=== PATIENT | male | born 1970 | race Two or more races ===

== ENCOUNTER 2022-03-25 17:50 | Inpatient (IN) | payer MEDICAID ==
[~2022-03-25] VITALS: Ht 175.3 cm; Wt 108.2 kg
[2022-03-25 19:07] LABS: BASOPHILS % (AUTO) 0.4 % (0-1); EOSINOPHILS % (AUTO) 0.1 % (0-6); HEMATOCRIT 41.9 % (42.0-52.0); HEMOGLOBIN 14.9 g/dl (14.0-17.9); LYMPHOCYTES # (AUTO) 0.9 X10'3 (1.1-4.8); LYMPHOCYTES % (AUTO) 9.6 % (21-51); MEAN CORPUSCULAR HGB CONC 35.5 g/dL (33.0-36.5); MEAN CORPUSCULAR VOLUME 98.4 FL (78-98); MEAN PLATELET VOLUME 8.8 FL (7.4-10.4); MONOCYTES # (AUTO) 0.8 X10'3 (0-0.9); MONOCYTES % (AUTO) 8.6 % (2-12); NEUTROPHILS # (AUTO) 7.5 X10'3 (1.8-7.7); NEUTROPHILS % (AUTO) 81.3 % (42-75); PLATELET COUNT 153 X10'3 (140-440); RED BLOOD COUNT 4.26 X10'6 (4.70-6.10); RED CELL DISTRIBUTION WIDTH 13.1 % (11.5-14.5); WHITE BLOOD COUNT 9.2 X10'3 (4.5-11.0)
[2022-03-25 19:22] LABS: ALANINE AMINOTRANSFERASE 60 U/L (12-78); ALBUMIN 3.4 G/DL (3.4-5.0); ALKALINE PHOSPHATASE 200 IU/L (46-116); AMYLASE 120 U/L (25-115); ANION GAP 9 (8-16); ASPARTATE AMINO TRANSFERASE 105 U/L (10-37); BILIRUBIN,TOTAL 7.3 MG/DL (0.1-1.0); BLOOD UREA NITROGEN 4 MG/DL (7-18); BUN/CREATININE RATIO 6.2 (5.4-32.0); CALCIUM 9.4 MG/DL (8.5-10.1); CHLORIDE 98 MMOL/L (99-107); CREATININE 0.65 MG/DL (0.60-1.10); GLUCOSE 112 MG/DL (70-104); LIPASE 537 U/L (73-393); POTASSIUM 4.1 MMOL/L (3.5-5.1); SODIUM 131 MMOL/L (135-145); TOTAL CARBON DIOXIDE 24.1 MMOL/L (24-32); eGFR > 90 ML/MIN
[2022-03-25 19:36] LABS: ALBUMIN/GLOBULIN RATIO 0.7 (1.1-1.5); TOTAL PROTEIN 8.4 G/DL (6.4-8.2)
[2022-03-26] MEDS ORDERED: iohexol 300mg/ml 100ml inj. ONE (01:54)
[2022-03-26] MEDS ORDERED: piperacillin/tazo 3.375gm/50ml 50 ML IV ONE (01:55)
[2022-03-26] MEDS ORDERED: bisacodyl 10mg suppository rectal RC PRN (02:50)
[2022-03-26] MEDS ORDERED: diphenhydrAMINE 50 mg/ml inj IV PRN (02:50)
[2022-03-26] MEDS ORDERED: HYDROmorphone inj. 0.5 MG/0.5 ML DISP.SYRIN IV PRN (02:50)
[2022-03-26] MEDS ORDERED: ondansetron/PF 4mg/2ml inj IV PRN (02:50)
[2022-03-26] MEDS ORDERED: diphenhydrAMINE 25mg capsule PO PRN (02:50)
[2022-03-26] MEDS ORDERED: morphine 2 MG/ML inj. syringe IV PRN ×2 (02:50)
[2022-03-26] MEDS ORDERED: HYDROcodone/acetaminophen 5mg/325mg tablet PO PRN (02:50)
[2022-03-26] MEDS ORDERED: mag hydrox/Alum hydrox/simeth 30ml oral suspension PO PRN (02:50)
[2022-03-26] MEDS ORDERED: ondansetron 4mg rapidly disintigrating tab PO PRN (02:50)
[2022-03-26] MEDS ORDERED: magnesium hydroxide 30ml (MOM) UD suspension PO PRN (02:50)
[2022-03-26] MEDS ORDERED: acetaminophen 325mg tablet PO PRN (02:50)
[2022-03-26 02:59] LABS: UA COLLECTION TYPE CLN CATCH MIDSTREAM
[2022-03-26 03:03] LABS: CLARITY,URINE SLIGHTLY CLOUDY (Clear); COLOR,URINE AMBER (Yellow)
[2022-03-26 03:04] LABS: GLUCOSE, URINE NEGATIVE (Neg); KETONES,URINE NEGATIVE (Neg); NITRITES, URINE NEGATIVE (Neg); OCCULT BLOOD,URINE TRACE-LYSED (Neg); PROTEIN,URINE TRACE mg/dl (Neg)
[2022-03-26 03:05] LABS: LEUKOCYTE ESTERASE ,URINE NEGATIVE (Neg)
[2022-03-26] MEDS ORDERED: pantoprazole 40MG/NS 100ML BAG 100 ML IV SCH (03:05)
[2022-03-26 03:06] LABS: BACTERIA,URINE FEW /HPF (Neg); RBC,URINE 0-2 /HPF (0-2); SQUAMOUS EPITHELIAL CELL,UR FEW /LPF (FEW); WBC,URINE 0-4 /HPF (0-4)
[2022-03-26 03:07] LABS: AMORPHOUS URATES 1+; MUCUS STRANDS MODERATE /LPF (Neg); RENAL CELLS, URINE FEW /HPF; TRANSITIONAL EPI CELLS,URINE MODERATE /HPF
[2022-03-26 03:08] LABS: CELLULAR CAST 0-4 /LPF (NEGATIVE); COARSE GRANULAR CAST 0-3 /LPF (NEGATIVE)
[2022-03-26] MEDS: normal saline 1000ml 1,000 ML IV SCH ×3 (03:10→23:36)
[2022-03-26 05:27] LABS: APTT 29 SECONDS (22-32)
[2022-03-26 05:33] LABS: OSMOLALITY 283 MOSM/K (280-300)
[2022-03-26 05:42] LABS: CREATINE KINASE 26 U/L (39-308); MAGNESIUM 1.9 MG/DL (1.5-2.4)
[2022-03-26 05:47] LABS: PHOSPHORUS 4.5 MG/DL (2.3-4.5)
[2022-03-26 06:14] LABS: HEMOGLOBIN A1C 4.2 % (4.5-6.2)
[2022-03-26 07:24] VITALS: BP 117/67
[2022-03-26] MEDS: docusate sod 100mg capsule PO SCH ×2 (08:00→20:10)
[2022-03-26] MEDS: piperacillin/tazo 3.375gm/50ml 50 ML IV SCH ×2 (09:27→17:27)
[2022-03-26] MEDS ORDERED: magnesium Cl slow-release 64mg tablet PO PRN (11:10)
[2022-03-26] MEDS ORDERED: magnesium 4gm in 100ml NS 100 ML IV PRN (11:10)
[2022-03-26] MEDS ORDERED: potassium Cl 40MEQ/1/2NS 520ml 520 ML IV PRN (11:10)
[2022-03-26] MEDS ORDERED: potassium Cl 20 mEq SR tablet PO PRN ×2 (11:10)
[2022-03-26 11:15] VITALS: BP 90/57
[2022-03-26 11:44] LABS: ALANINE AMINOTRANSFERASE 70 U/L (12-78); ALBUMIN 3.1 G/DL (3.4-5.0); ALBUMIN/GLOBULIN RATIO 0.7 (1.1-1.5); ALKALINE PHOSPHATASE 186 IU/L (46-116); ANION GAP 10 (8-16); ASPARTATE AMINO TRANSFERASE 101 U/L (10-37); BILIRUBIN,TOTAL 6.6 MG/DL (0.1-1.0); BLOOD UREA NITROGEN 8 MG/DL (7-18); BUN/CREATININE RATIO 9.2 (5.4-32.0); CALCIUM 8.9 MG/DL (8.5-10.1); CHLORIDE 98 MMOL/L (99-107); CHOL/HDL RATIO 5.1 (0.00-4.99); CHOLESTEROL 108 MG/DL (0-200); CREATININE 0.87 MG/DL (0.60-1.10); GLUCOSE 94 MG/DL (70-104); HDL CHOLESTEROL 21 MG/DL (35-60); LDL CHOLESTEROL 81 MG/DL (50-100); LIPASE 154 U/L (73-393); POTASSIUM 3.7 MMOL/L (3.5-5.1); SODIUM 131 MMOL/L (135-145); TOTAL CARBON DIOXIDE 23.4 MMOL/L (24-32); TOTAL PROTEIN 7.4 G/DL (6.4-8.2); TRIGLYCERIDES 82 MG/DL (20-135); eGFR > 90 ML/MIN
[2022-03-26 13:42] LABS: BASOPHILS % (AUTO) 0.6 % (0-1); HEMATOCRIT 37.1 % (42.0-52.0); HEMOGLOBIN 12.7 g/dl (14.0-17.9); LYMPHOCYTES # (AUTO) 0.8 X10'3 (1.1-4.8); LYMPHOCYTES % (AUTO) 19.2 % (21-51); MEAN CORPUSCULAR HEMOGLOBIN 34.2 PG (27.0-31.0); MEAN CORPUSCULAR HGB CONC 34.2 g/dL (33.0-36.5); MEAN CORPUSCULAR VOLUME 100.1 FL (78-98); MEAN PLATELET VOLUME 9.2 FL (7.4-10.4); MONOCYTES # (AUTO) 0.6 X10'3 (0-0.9); MONOCYTES % (AUTO) 13.3 % (2-12); NEUTROPHILS # (AUTO) 2.9 X10'3 (1.8-7.7); NEUTROPHILS % (AUTO) 65.9 % (42-75); PLATELET COUNT 127 X10'3 (140-440); RED BLOOD COUNT 3.71 X10'6 (4.70-6.10); RED CELL DISTRIBUTION WIDTH 12.7 % (11.5-14.5); WHITE BLOOD COUNT 4.4 X10'3 (4.5-11.0)
[2022-03-26] MEDS ORDERED: LORazepam 1 MG tablet PO PRN (15:10)
[2022-03-26] MEDS ORDERED: LORazepam 2 mg/ml vial IV PRN (15:10)
[2022-03-26] MEDS: thiamine 100mg tablet PO SCH (15:10)
[2022-03-26] MEDS: folic acid 1mg tablet PO SCH (15:19)
[2022-03-26] MEDS: multivitamins, therapeutics tablet PO SCH (15:19)
[2022-03-26 18:00] VITALS: BP 98/76
--- NOTE | 2022-03-26 18:39 | NUR ---
Problems reprioritized. Patient report given, questions answered & plan of care reviewed with Salome CSATRO.
--- NOTE | 2022-03-26 19:24 | NUR ---
Reviewed patient orders regarding NPO status. Called MD Granados to see if patient could have a diet order till 0000 as patient has a VL Portal scheduled for AM. gave orders for Clear Liquid diet till 0000.
[2022-03-26] MEDS: K and/or MAG REPLACEMENT MC SCH (20:00)
[2022-03-26] MEDS ORDERED: temazepam 15mg capsule PO PRN (21:00)
[2022-03-26 22:00] VITALS: BP 102/61
[2022-03-27] MEDS: piperacillin/tazo 3.375gm/50ml 50 ML IV SCH ×3 (01:30→17:31)
[2022-03-27 05:45] LABS: EOSINOPHILS % (AUTO) 1.5 % (0-6); HEMATOCRIT 35.8 % (42.0-52.0); HEMOGLOBIN 12.3 g/dl (14.0-17.9); LYMPHOCYTES # (AUTO) 0.6 X10'3 (1.1-4.8); LYMPHOCYTES % (AUTO) 21.1 % (21-51); MEAN CORPUSCULAR HEMOGLOBIN 34.5 PG (27.0-31.0); MEAN CORPUSCULAR HGB CONC 34.3 g/dL (33.0-36.5); MEAN CORPUSCULAR VOLUME 100.4 FL (78-98); MEAN PLATELET VOLUME 9.3 FL (7.4-10.4); MONOCYTES # (AUTO) 0.3 X10'3 (0-0.9); MONOCYTES % (AUTO) 11.6 % (2-12); NEUTROPHILS # (AUTO) 1.8 X10'3 (1.8-7.7); NEUTROPHILS % (AUTO) 64.8 % (42-75); PLATELET COUNT 116 X10'3 (140-440); RED BLOOD COUNT 3.56 X10'6 (4.70-6.10); RED CELL DISTRIBUTION WIDTH 12.8 % (11.5-14.5); WHITE BLOOD COUNT 2.8 X10'3 (4.5-11.0)
[2022-03-27 06:04] LABS: ALANINE AMINOTRANSFERASE 55 U/L (12-78); ALBUMIN 2.8 G/DL (3.4-5.0); ALKALINE PHOSPHATASE 172 IU/L (46-116); AMYLASE 38 U/L (25-115); ANION GAP 5 (8-16); ASPARTATE AMINO TRANSFERASE 73 U/L (10-37); BILIRUBIN,TOTAL 4.1 MG/DL (0.1-1.0); BLOOD UREA NITROGEN 7 MG/DL (7-18); BUN/CREATININE RATIO 9.6 (5.4-32.0); CALCIUM 8.6 MG/DL (8.5-10.1); CHLORIDE 102 MMOL/L (99-107); CREATININE 0.73 MG/DL (0.60-1.10); GLUCOSE 84 MG/DL (70-104); HDL CHOLESTEROL 22 MG/DL (35-60); LDL CHOLESTEROL 82 MG/DL (50-100); LIPASE 65 U/L (73-393); MAGNESIUM 1.8 MG/DL (1.5-2.4); POTASSIUM 3.6 MMOL/L (3.5-5.1); SODIUM 132 MMOL/L (135-145); TOTAL CARBON DIOXIDE 25.4 MMOL/L (24-32); eGFR > 90 ML/MIN
[2022-03-27 06:20] LABS: ALBUMIN/GLOBULIN RATIO 0.7 (1.1-1.5); CHOL/HDL RATIO 5.1 (0.00-4.99); CHOLESTEROL 112 MG/DL (0-200); PHOSPHORUS 4.2 MG/DL (2.3-4.5); TOTAL PROTEIN 7.1 G/DL (6.4-8.2); TRIGLYCERIDES 93 MG/DL (20-135)
--- NOTE | 2022-03-27 06:52 | NUR ---
Patient in room [facility]. I have received report from Salome CASTRO and had the opportunity to ask questions and assume patient care.
--- NOTE | 2022-03-27 07:12 | NUR ---
Patient refused 0600 Vital signs.
[2022-03-27] MEDS: K and/or MAG REPLACEMENT MC SCH ×2 (08:00→19:48)
[2022-03-27 08:12] LABS: PLATELET ESTIMATE DECREASED; TOTAL CELLS COUNTED 100
[2022-03-27] MEDS: docusate sod 100mg capsule PO SCH ×2 (08:22→19:51)
[2022-03-27] MEDS: thiamine 100mg tablet PO SCH (08:22)
[2022-03-27] MEDS: multivitamins, therapeutics tablet PO SCH (08:22)
[2022-03-27] MEDS: folic acid 1mg tablet PO SCH (08:22)
[2022-03-27] MEDS: normal saline 1000ml 1,000 ML IV SCH ×2 (09:31→17:32)
[2022-03-27 11:28] VITALS: BP 131/67
--- NOTE | 2022-03-27 12:09 | NUR ---
Discussed with Hospitalist, Rounding surgeon reviewed imaging yesterday and did not feel patient was a surgical candidate, felt patient needed medical management.
[2022-03-27] MEDS ORDERED: sincalide inj 2.2 MCG in normal saline 100ml IV soln 100 ML IV ONE (14:30)
[2022-03-27 18:00] VITALS: BP 117/74
--- NOTE | 2022-03-27 18:23 | NUR ---
Problems reprioritized. Patient report given, questions answered & plan of care reviewed with Salome CASTRO.
[2022-03-27 22:00] VITALS: BP 100/53
[2022-03-28] MEDS: piperacillin/tazo 3.375gm/50ml 50 ML IV SCH ×3 (02:01→17:58)
[2022-03-28 03:42] LABS: EOSINOPHILS # (AUTO) 0.1 X10'3 (0-0.9); EOSINOPHILS % (AUTO) 1.5 % (0-6); HEMATOCRIT 34.8 % (42.0-52.0); HEMOGLOBIN 12.4 g/dl (14.0-17.9); MEAN CORPUSCULAR HEMOGLOBIN 35.3 PG (27.0-31.0); MEAN CORPUSCULAR HGB CONC 35.6 g/dL (33.0-36.5); MEAN CORPUSCULAR VOLUME 99.3 FL (78-98); MEAN PLATELET VOLUME 8.8 FL (7.4-10.4); MONOCYTES # (AUTO) 0.4 X10'3 (0-0.9); MONOCYTES % (AUTO) 11.3 % (2-12); NEUTROPHILS # (AUTO) 2.1 X10'3 (1.8-7.7); NEUTROPHILS % (AUTO) 59.2 % (42-75); PLATELET COUNT 115 X10'3 (140-440); RED BLOOD COUNT 3.51 X10'6 (4.70-6.10); RED CELL DISTRIBUTION WIDTH 12.8 % (11.5-14.5); WHITE BLOOD COUNT 3.6 X10'3 (4.5-11.0)
[2022-03-28 03:58] LABS: ALANINE AMINOTRANSFERASE 47 U/L (12-78); ALBUMIN 2.8 G/DL (3.4-5.0); ALBUMIN/GLOBULIN RATIO 0.6 (1.1-1.5); ALKALINE PHOSPHATASE 168 IU/L (46-116); AMYLASE 34 U/L (25-115); ANION GAP 11 (8-16); ASPARTATE AMINO TRANSFERASE 59 U/L (10-37); BILIRUBIN,TOTAL 3.2 MG/DL (0.1-1.0); BLOOD UREA NITROGEN 4 MG/DL (7-18); BUN/CREATININE RATIO 5.8 (5.4-32.0); CALCIUM 8.8 MG/DL (8.5-10.1); CHLORIDE 103 MMOL/L (99-107); CREATININE 0.69 MG/DL (0.60-1.10); GLUCOSE 86 MG/DL (70-104); LIPASE 69 U/L (73-393); MAGNESIUM 1.8 MG/DL (1.5-2.4); PHOSPHORUS 4.2 MG/DL (2.3-4.5); POTASSIUM 3.6 MMOL/L (3.5-5.1); SODIUM 137 MMOL/L (135-145); TOTAL PROTEIN 7.2 G/DL (6.4-8.2); eGFR > 90 ML/MIN
[2022-03-28 06:00] VITALS: BP 130/61
[2022-03-28] MEDS: docusate sod 100mg capsule PO SCH ×2 (08:00→20:03)
[2022-03-28] MEDS: K and/or MAG REPLACEMENT MC SCH ×2 (08:00→19:59)
[2022-03-28] MEDS: folic acid 1mg tablet PO SCH (08:00)
[2022-03-28] MEDS: multivitamins, therapeutics tablet PO SCH (08:00)
[2022-03-28] MEDS: thiamine 100mg tablet PO SCH (08:00)
[2022-03-28 11:00] VITALS: BP 118/55
[2022-03-28 11:16] VITALS: BP 118/65
[2022-03-28] MEDS ORDERED: dexamethasone sod phosphate 4mg/ml inj. ONE (13:21)
[2022-03-28] MEDS ORDERED: ceFOXitin 2,000 MG/NS 100 ML ADD-VANTAGE bag IV ONE (13:21)
[2022-03-28] MEDS ORDERED: LIDOcaine 1%/PF 5ML 10 MG/ML VIAL ONE (13:21)
[2022-03-28] MEDS ORDERED: ondansetron/PF 4mg/2ml inj ONE (13:21)
[2022-03-28] MEDS ORDERED: sevoflurane 250ml liquid IH ONE (13:21)
[2022-03-28] MEDS: normal saline 1000ml 1,000 ML IV SCH ×2 (14:50→17:58)
--- NOTE | 2022-03-28 16:02 | NUR ---
Dr Montero called stating patient is going to OR for removal of his gallbladder tomorrow morning (03/29/22). gave order that pt be NPO at midnight and to hold anticoagulants before surgery. GLORIA Miles notified.
[2022-03-28] MEDS ORDERED: PNV PO (16:18)
[2022-03-28] MEDS ORDERED: MORP15TA PO (16:18)
[2022-03-28] MEDS ORDERED: AMOX-318 PO (16:59)
[2022-03-28] MEDS ORDERED: HYDR-3965 PO (17:01)
[2022-03-28 18:00] VITALS: BP 160/88
--- NOTE | 2022-03-28 18:35 | NUR ---
Patient in room [facility]. I have received report from GLORIA Miles and had the opportunity to ask questions and assume patient care.
[2022-03-28 22:00] VITALS: BP 136/61
[2022-03-29] VITALS (17 sets, daily range): BP systolic 113–149; BP diastolic 71–89
[2022-03-29] MEDS: piperacillin/tazo 3.375gm/50ml 50 ML IV SCH ×3 (01:45→18:14)
[2022-03-29] MEDS: normal saline 1000ml 1,000 ML IV SCH ×3 (05:47→19:54)
[2022-03-29 06:24] LABS: EOSINOPHILS # (AUTO) 0.1 X10'3 (0-0.9); HEMATOCRIT 36.2 % (42.0-52.0); HEMOGLOBIN 12.5 g/dl (14.0-17.9); LYMPHOCYTES # (AUTO) 0.7 X10'3 (1.1-4.8); LYMPHOCYTES % (AUTO) 22.2 % (21-51); MEAN CORPUSCULAR HEMOGLOBIN 34.2 PG (27.0-31.0); MEAN CORPUSCULAR HGB CONC 34.5 g/dL (33.0-36.5); MEAN CORPUSCULAR VOLUME 99.4 FL (78-98); MEAN PLATELET VOLUME 8.9 FL (7.4-10.4); MONOCYTES # (AUTO) 0.3 X10'3 (0-0.9); MONOCYTES % (AUTO) 10.1 % (2-12); NEUTROPHILS # (AUTO) 2.2 X10'3 (1.8-7.7); NEUTROPHILS % (AUTO) 64.7 % (42-75); PLATELET COUNT 121 X10'3 (140-440); RED BLOOD COUNT 3.64 X10'6 (4.70-6.10); RED CELL DISTRIBUTION WIDTH 12.9 % (11.5-14.5); WHITE BLOOD COUNT 3.4 X10'3 (4.5-11.0)
--- NOTE | 2022-03-29 06:28 | NUR ---
Problems reprioritized. Patient report given, questions answered & plan of care reviewed with GLORIA Post.
[2022-03-29 06:57] LABS: ALANINE AMINOTRANSFERASE 40 U/L (12-78); ALBUMIN 2.8 G/DL (3.4-5.0); ALBUMIN/GLOBULIN RATIO 0.6 (1.1-1.5); ALKALINE PHOSPHATASE 160 IU/L (46-116); AMYLASE 28 U/L (25-115); ANION GAP 9 (8-16); ASPARTATE AMINO TRANSFERASE 56 U/L (10-37); BILIRUBIN,TOTAL 3.2 MG/DL (0.1-1.0); BLOOD UREA NITROGEN 4 MG/DL (7-18); BUN/CREATININE RATIO 5.6 (5.4-32.0); CALCIUM 8.9 MG/DL (8.5-10.1); CHLORIDE 104 MMOL/L (99-107); CREATININE 0.72 MG/DL (0.60-1.10); GLUCOSE 95 MG/DL (70-104); LIPASE 69 U/L (73-393); MAGNESIUM 1.8 MG/DL (1.5-2.4); PHOSPHORUS 4.2 MG/DL (2.3-4.5); POTASSIUM 3.6 MMOL/L (3.5-5.1); SODIUM 136 MMOL/L (135-145); TOTAL CARBON DIOXIDE 23.1 MMOL/L (24-32); TOTAL PROTEIN 7.3 G/DL (6.4-8.2); eGFR > 90 ML/MIN
[2022-03-29] MEDS: K and/or MAG REPLACEMENT MC SCH ×2 (08:00→19:53)
[2022-03-29] MEDS: folic acid 1mg tablet PO SCH (08:23)
[2022-03-29] MEDS: thiamine 100mg tablet PO SCH (08:23)
[2022-03-29] MEDS: multivitamins, therapeutics tablet PO SCH (08:23)
[2022-03-29] MEDS: docusate sod 100mg capsule PO SCH ×2 (08:24→19:39)
[2022-03-29] MEDS ORDERED: ondansetron/PF 4mg/2ml inj IV PRN (12:40)
[2022-03-29] MEDS ORDERED: labetalol 20mg/4ml (5mg/ml) syringe IV PRN (12:40)
[2022-03-29] MEDS ORDERED: ringers solution, lacted 1,000 ML IV SCH (12:40)
[2022-03-29] MEDS ORDERED: fentaNYL/PF 50MCG/1 ML 2ML syringe IV PRN (12:40)
[2022-03-29] MEDS ORDERED: morphine 2 MG/ML inj. syringe IV PRN (12:40)
[2022-03-29] MEDS ORDERED: hydrALAZINE 20mg/ml inj. IV PRN (12:40)
[2022-03-29] MEDS ORDERED: morphine 4 MG/ML inj SYRINge IV PRN (12:40)
[2022-03-29] MEDS ORDERED: BUPIVAcaine 0.5% inj/PF 30 ML ONE (13:13)
[2022-03-29] MEDS ORDERED: fentaNYL/PF 50MCG/1 ML 2ML syringe ONE (13:30)
[2022-03-29] MEDS ORDERED: midazolam 1 mg/ML 2ml injection ONE (13:30)
[2022-03-29] MEDS ORDERED: propofol inj 20 ML IV ONE (13:53)
[2022-03-29] MEDS ORDERED: rocuronium 10mg/ml inj IV ONE (13:53)
[2022-03-29] MEDS ORDERED: glycopyrrolate 0.2mg/ml inj ONE (14:49)
[2022-03-29] MEDS ORDERED: neostigmine methylsulfate 1 MG/ML 10ml vial ONE (14:49)
[2022-03-29] MEDS ORDERED: BUPIVAcaine 0.5% inj/PF 30 ml vial IJ ONE (14:53)
[2022-03-29] MEDS ORDERED: sugammadex 200mg/2ml injection IV ONE (15:07)
--- NOTE | 2022-03-29 15:15 | NUR ---
Received from OR via , accompanied by Anesthesiologist and report given by Anesthesiolgist. PATIENT A&OX4, DENIES PAIN, V/S WNL, SCD ON , PIV 20G RUE, PIV 18 LUE, ABDOMINAL DRESSING TO ABDOMEN CDI WITH ONEL WITH APPROX 20CC RED FLUID, SEROUS.
[2022-03-29] MEDS: fentaNYL/PF 50MCG/1 ML 2ML syringe IV PRN ×2 (15:28→15:38)
--- NOTE | 2022-03-29 15:55 | NUR ---
PATIENT A&OX4, C/O /10 PAIN SEE EMAR, V/S WNL, SCD ON , PIV 20G RUE, PIV 18 LUE, ABDOMINAL DRESSING TO ABDOMEN CDI WITH ONEL WITH APPROX 20CC RED FLUID, SEROUS. PATIENT HAS MET ALL CRITERIA FOR TRANSFER TO THE SURGICAL FLOOR. . BED LOW, CALL LIGHT PRESENT AND 2 RAILS UP. RN PRESENT TO ACCEPT CARE OF PATIENT AND REPORT HAS BEEN CALLED. ALL QUESTIONS ANSWERED TO ACCEPTING RN. AUTOMOBILE LOCATOR HAS ASSUMED CARE.
[2022-03-29] MEDS: HYDROcodone/acetaminophen 10/325mg tab PO PRN (16:19)
--- NOTE | 2022-03-29 17:35 | NUR ---
Patient alert x4. ABD Dressing intact. Patient continues on full liquid diet until Dr. Gunn changes diet order.Resting. Bed in low, call light, and ice chips at bedside.All safety measures in place. Will continue to monitor until shift change.
--- NOTE | 2022-03-29 19:06 | NUR ---
Patient in room [facility]. I have received report from SEDRICK Keane and had the opportunity to ask questions and assume patient care.
[2022-03-30] MEDS: HYDROcodone/acetaminophen 10/325mg tab PO PRN ×3 (00:29→08:19)
[2022-03-30 02:00] VITALS: BP 131/72
[2022-03-30] MEDS: piperacillin/tazo 3.375gm/50ml 50 ML IV SCH ×2 (02:02→10:16)
[2022-03-30 04:56] LABS: BASOPHILS % (AUTO) 0.1 % (0-1); EOSINOPHILS % (AUTO) 0 % (0-6); HEMATOCRIT 36.1 % (42.0-52.0); HEMOGLOBIN 12.6 g/dl (14.0-17.9); LYMPHOCYTES # (AUTO) 0.6 X10'3 (1.1-4.8); LYMPHOCYTES % (AUTO) 11.5 % (21-51); MEAN CORPUSCULAR HEMOGLOBIN 34.3 PG (27.0-31.0); MEAN CORPUSCULAR HGB CONC 34.8 g/dL (33.0-36.5); MEAN CORPUSCULAR VOLUME 98.5 FL (78-98); MONOCYTES # (AUTO) 0.3 X10'3 (0-0.9); MONOCYTES % (AUTO) 5.2 % (2-12); NEUTROPHILS # (AUTO) 4.4 X10'3 (1.8-7.7); NEUTROPHILS % (AUTO) 83.2 % (42-75); PLATELET COUNT 142 X10'3 (140-440); RED BLOOD COUNT 3.67 X10'6 (4.70-6.10); RED CELL DISTRIBUTION WIDTH 12.8 % (11.5-14.5); WHITE BLOOD COUNT 5.3 X10'3 (4.5-11.0)
[2022-03-30 05:22] LABS: ALANINE AMINOTRANSFERASE 35 U/L (12-78); ALBUMIN 2.7 G/DL (3.4-5.0); ALBUMIN/GLOBULIN RATIO 0.6 (1.1-1.5); ALKALINE PHOSPHATASE 147 IU/L (46-116); AMYLASE 23 U/L (25-115); ANION GAP 6 (8-16); ASPARTATE AMINO TRANSFERASE 51 U/L (10-37); BILIRUBIN,TOTAL 2.8 MG/DL (0.1-1.0); BLOOD UREA NITROGEN 5 MG/DL (7-18); BUN/CREATININE RATIO 7.2 (5.4-32.0); CALCIUM 9.1 MG/DL (8.5-10.1); CHLORIDE 103 MMOL/L (99-107); CREATININE 0.69 MG/DL (0.60-1.10); GLUCOSE 117 MG/DL (70-104); LIPASE < 50 U/L (73-393); MAGNESIUM 1.7 MG/DL (1.5-2.4); PHOSPHORUS 4.8 MG/DL (2.3-4.5); SODIUM 133 MMOL/L (135-145); TOTAL CARBON DIOXIDE 23.7 MMOL/L (24-32); TOTAL PROTEIN 7.3 G/DL (6.4-8.2); eGFR > 90 ML/MIN
[2022-03-30] MEDS: normal saline 1000ml 1,000 ML IV SCH (05:46)
[2022-03-30 06:00] VITALS: BP_SYST 122; BP_SYST 160; BP_DIAS 70; BP_DIAS 71
--- NOTE | 2022-03-30 06:36 | NUR ---
Problems reprioritized. Patient report given, questions answered & plan of care reviewed with SEDRICK Keane and GLORIA Post.
--- NOTE | 2022-03-30 07:03 | NUR ---
Patient in room [facility]. I have received report from phil Landaverde and had the opportunity to ask questions and assume patient care.
--- NOTE | 2022-03-30 07:16 | NUR ---
Received report from night nurse Angelica CASTRO assumed care of patient. Will continue to monitor.
--- NOTE | 2022-03-30 07:19 | NUR ---
Received report from night nurse Angelica CASTRO assumed care of patient. Will continue to monitor
[2022-03-30] MEDS: K and/or MAG REPLACEMENT MC SCH (08:00)
[2022-03-30] MEDS: multivitamins, therapeutics tablet PO SCH (08:18)
[2022-03-30] MEDS: thiamine 100mg tablet PO SCH (08:18)
[2022-03-30] MEDS: docusate sod 100mg capsule PO SCH (08:18)
[2022-03-30] MEDS: folic acid 1mg tablet PO SCH (08:18)
[2022-03-30 10:00] VITALS: BP 103/65
--- NOTE | 2022-03-30 13:06 | NUR ---
Message: Binh Lyons- Pharmacy on file. Pt ready to DC. Sejal Payan [id number]
[2022-03-30] MEDS ORDERED: THIA50TA10 PO (13:31)
[2022-03-30] MEDS ORDERED: LACT1CAP55 PO (13:31)
[2022-03-30] MEDS ORDERED: HYDR-3965 PO (13:31)
[2022-03-30] MEDS ORDERED: AMOX-419 PO (13:31)
[2022-03-30] MEDS ORDERED: MULT-25 PO (13:31)
[2022-03-30] MEDS ORDERED: FOLI1TAB27 PO (13:31)
--- NOTE | 2022-03-30 18:00 | NUR ---
reviewed physical assessments, changes made based on mutual findings. By Sejal Payan Addendum: 03/30/22 at 1803 by Sejal Gonzalez RN Amended: Links added.
--- NOTE | 2022-03-30 18:00 | NUR ---
patient discharged home accompanied by janeth. All discharge education provided.
== END 2022-03-30 16:00 | disposition home or self-care (01) | DRG 263 ==
LOC: ER 17:52 → UNDOADMIN 03-26 02:54 → ED HOLD 03-26 02:54 → SUR 3N 03-26 07:16
PROVIDERS: ADMIT Family Medicine; ATTEND Family Medicine
PROC: BW211ZZ Computerized Tomography (CT Scan) of Abdomen and Pelvis using Low Osmolar Contrast (ICD-10-PCS; 2022-03-26)
PROC: CF1YYZZ Planar Nuclear Medicine Imaging of Hepatobiliary System and Pancreas using Other Radionuclide (ICD-10-PCS; 2022-03-28)
PROC: 0FT44ZZ Resection of Gallbladder, Percutaneous Endoscopic Approach (ICD-10-PCS; principal; 2022-03-29 13:21)
DX: K81.2 Acute cholecystitis with chronic cholecystitis (principal); D68.9 Coagulation defect, unspecified; K76.6 Portal hypertension; E87.1 Hypo-osmolality and hyponatremia; D73.3 Abscess of spleen; F10.20 Alcohol dependence, uncomplicated
CPT/HCPCS: 36415; 71045; 74177; 74181; 78226; 80053; 80061; 81001; 82150; 82550; 82948; 83036; 83605; 83690; 83735; 83880; 83930; 84100; 84443; 84484; 85007; 85025; 85610; 85730; 87040; 93005; 93975; 99285; A4215; A4618; A6449; A7000; A9537; G0378; J0694; J1100; J2060; J2250; J2270; J2405; J2543; J2704; J2710; J3010; J3490; J7030; J7120; Q9967; S0020